=== PATIENT | female | born 1945 | race Caucasian/White ===

== ENCOUNTER 2021-03-13 16:05 | Inpatient (IN) | payer OTHER ==
[~2021-03-13] VITALS: Ht 170.2 cm; Wt 164.3 kg
[~2021-03-13 16:05] MED LIST: CIPRO500 MG PO; CLONAZEPAM0.5 MG PO; FERROUS SULFAT325 MG PO; FUROSEMIDE10 MG/1 ML BU; HYDROCHLOROTHIA25 MG PO; LASIX40 MG PO; LEVAQUIN500 MG PO; LEXAPRO10 MG PO; LYRICA75 MG PO; MELOXICAM15 MG PO; MELOXICAN; METOPROLOL SUCC25 MG PO; NORCO 10MG-325MG1 EA PO; OXYBUTYNIN CHLOR5 MG PO; PANTOPRAZOLE SO40 MG PO; POTASSIUM CHLO20 ME1 PO; SENNA-S TABLET1 EA PO; TRAZADONE; TRAZODONE HCL50 MG PO; ULTRAM50 MG PO; VITAMIN B12 PO; VITAMIN D31000 UNIT PO; WALKER; XARELTO20 MG PO; Z.0.CYCLOBENZAPRINE1; Z.0.HYDROCHLOROTHIA2 PO; Z.0.LISINOPRIL20 MG PO; Z.0.LOPRESSOR50 MG PO; Z.0.OXYBUTYNIN CHLOR PO
[2021-03-13 18:09] LABS: BASOPHILS # (AUTO) 0.1 (0.0-0.1); BASOPHILS % 0.6 % (0.0-1.0); EOSINOPHILS # (AUTO) 0.2 (0.0-0.4); HEMATOCRIT 38.4 % (34.2-44.1); HEMOGLOBIN 12.2 g/dL (12.0-16.0); LYMPHOCYTES # (AUTO) 2.1 (1.0-3.2); LYMPHOCYTES % 21.7 % (18.0-39.1); MEAN CORPUSCULAR HEMOGLOBIN 29.1 pg (28-32); MEAN CORPUSCULAR HGB CONC 31.8 g/dL (31-35); MEAN CORPUSCULAR VOLUME 91.6 fL (81-99); MONOCYTES % 10.9 % (4.4-11.3); NEUTROPHILS # (AUTO) 6.2 (2.1-6.9); NEUTROPHILS % 64.4 % (38.7-80.0); PLATELET COUNT 199 x10e3/uL (140-360); RED BLOOD COUNT 4.19 x10e6/uL (3.6-5.1); RED CELL DISTRIBUTION WIDTH 14.5 % (11.7-14.4)
[2021-03-13 18:18] LABS: ALBUMIN 3.5 g/dL (3.5-5.0); ALBUMIN/GLOBULIN RATIO 0.9 (0.8-2.0); ALKALINE PHOSPHATASE 68 IU/L (40-150); ANION GAP 14.9 mmol/L (8-16); BLOOD UREA NITROGEN 36 mg/dL (7-26); BUN/CREATININE RATIO 35 (6-25); CALCIUM 9.6 mg/dL (8.4-10.2); CARBON DIOXIDE 24 mmol/L (22-29); CHLORIDE 105 mmol/L (98-107); CREATININE, SERUM 1.02 mg/dL (0.57-1.11); EST GLOMERULAR FILTRATION RATE 53 ML/MIN (60-); GLUCOSE 97 mg/dL (74-118); POTASSIUM 3.9 mmol/L (3.5-5.1); SODIUM 140 mmol/L (136-145)
[2021-03-13 18:19] LABS: ALANINE AMINOTRANSFERASE < 6 IU/L (0-55)
[2021-03-13] MEDS ORDERED: VANCOMYCIN 1GM/NS 250 ML 250 ML IV STA (20:23)
[2021-03-13] MEDS ORDERED: CEFEPIME 1 GM in SODIUM CHLORIDE 0.9% 50ML 50 ML IV ONE (20:30)
[2021-03-13] MEDS ORDERED: FUROSEMIDE INJ 10 MG/ML 4 ML VIAL IV ONE (20:30)
[2021-03-13] MEDS ORDERED: Vancomycin IV 1.5 GM in SODIUM CHLORIDE 0.9% 250ML 250 ML IV ONE (21:45)
[2021-03-13] MEDS ORDERED: VANCOMYCIN 1GM/NS 250 ML 500 ML ONE ×2 (22:04→22:05)
[2021-03-13] MEDS ORDERED: SODIUM CHLORIDE 0.9% 250ML 250 ML ONE (22:04)
[2021-03-13 23:08] VITALS: BP 131/92
[2021-03-14] VITALS (7 sets, daily range): BP systolic 99–131; BP diastolic 67–92
[2021-03-14] MEDS ORDERED: ESCITALOPRAM OXALATE 10 MG TAB PO PRN (00:30)
[2021-03-14] MEDS ORDERED: ONDANSETRON HCL INJ 2MG/ML 2ML 2 MG/ML VIAL IV PRN (00:30)
[2021-03-14] MEDS ORDERED: HYDRALAZINE HCL 25 MG TAB PO PRN (00:30)
[2021-03-14] MEDS ORDERED: CEFAZOLIN SOD 1 GM/NS 50ML 50 ML IV STA (00:31)
[2021-03-14] MEDS ORDERED: VITAMIN D310 MCG PO (00:35)
[2021-03-14] MEDS ORDERED: NIFEDIPINE ER30 M1 PO (00:35)
[2021-03-14] MEDS ORDERED: POTASSIUM CHLO10 ME1 PO (00:37)
[2021-03-14] MEDS ORDERED: METOPROLOL TART50 MG PO (00:38)
[2021-03-14] MEDS ORDERED: VITAMIN E400 UNI1 PO (00:40)
[2021-03-14] MEDS ORDERED: TYLENOL325 MG PO (00:42)
[2021-03-14] MEDS ORDERED: SODIUM CHLORIDE 0.9% 250ML 250 ML ONE (01:23)
[2021-03-14] MEDS ORDERED: B12 ACTIVE1000 MCG PO (03:19)
[2021-03-14 05:35] LABS: BASOPHILS # (AUTO) 0.1 (0.0-0.1); BASOPHILS % 0.7 % (0.0-1.0); EOSINOPHILS # (AUTO) 0.3 (0.0-0.4); EOSINOPHILS % 3.5 % (0.0-6.0); HEMATOCRIT 36.1 % (34.2-44.1); HEMOGLOBIN 11.6 g/dL (12.0-16.0); LYMPHOCYTES # (AUTO) 1.6 (1.0-3.2); LYMPHOCYTES % 21.9 % (18.0-39.1); MEAN CORPUSCULAR HGB CONC 32.1 g/dL (31-35); MEAN CORPUSCULAR VOLUME 90.3 fL (81-99); MONOCYTES # (AUTO) 0.9 (0.2-0.8); MONOCYTES % 12.2 % (4.4-11.3); NEUTROPHILS # (AUTO) 4.4 (2.1-6.9); NEUTROPHILS % 61.4 % (38.7-80.0); PLATELET COUNT 186 x10e3/uL (140-360); RED CELL DISTRIBUTION WIDTH 14.1 % (11.7-14.4)
[2021-03-14] MEDS: ACETAMINOPHEN 325 MG TAB PO PRN ×2 (05:40→12:06)
[2021-03-14] MEDS: CEFAZOLIN SOD 1 GM/NS 50ML 50 ML IV SCH ×3 (05:48→17:05)
[2021-03-14 05:59] LABS: ALBUMIN/GLOBULIN RATIO 0.9 (0.8-2.0); ALKALINE PHOSPHATASE 61 IU/L (40-150); ANION GAP 12.8 mmol/L (8-16); BLOOD UREA NITROGEN 31 mg/dL (7-26); BUN/CREATININE RATIO 36 (6-25); CARBON DIOXIDE 25 mmol/L (22-29); CHLORIDE 107 mmol/L (98-107); CREATININE, SERUM 0.87 mg/dL (0.57-1.11); EST GLOMERULAR FILTRATION RATE > 60 ML/MIN (60-); GLUCOSE 96 mg/dL (74-118); POTASSIUM 3.8 mmol/L (3.5-5.1); SODIUM 141 mmol/L (136-145)
[2021-03-14] MEDS ORDERED: FUROSEMIDE INJ 10 MG/ML 4 ML VIAL IV SCH (06:00)
[2021-03-14 06:05] LABS: ALANINE AMINOTRANSFERASE < 6 IU/L (0-55)
[2021-03-14] MEDS: TRAMADOL HCL 50 MG TAB PO PRN ×2 (07:12→15:21)
[2021-03-14] MEDS ORDERED: OXYBUTYNIN CHLORIDE 5 MG TAB PO SCH (09:00)
[2021-03-14] MEDS ORDERED: METOPROLOL SUCCINATE 25 MG TAB XL PO SCH (09:00)
[2021-03-14] MEDS ORDERED: RIVAROXABAN 20 MG TABLET PO SCH (09:00)
[2021-03-14] MEDS: POTASSIUM CHLORIDE 20 MEQ TAB CR PO SCH (12:03)
[2021-03-14] MEDS: OXYBUTYNIN CHLORIDE 5 MG TAB PO SCH ×2 (12:03→20:30)
[2021-03-14] MEDS: METOPROLOL TARTRATE 50 MG TAB PO SCH ×2 (12:04→20:31)
[2021-03-14] MEDS: NIFEDIPINE CR 30 MG TAB PO SCH (12:05)
[2021-03-14] MEDS: LISINOPRIL 20 MG TAB PO SCH (12:08)
[2021-03-14] MEDS: FUROSEMIDE INJ 10 MG/ML 4 ML VIAL IV SCH (12:11)
[2021-03-14] MEDS: CHOLESTYRAMINE 4 GM PACKET PO PRN (15:20)
[2021-03-14] MEDS: RIVAROXABAN 20 MG TABLET PO SCH (20:30)
[2021-03-14] MEDS: FERROUS SULFATE 325 MG TAB PO SCH (20:30)
[2021-03-15] VITALS (8 sets, daily range): BP systolic 93–136; BP diastolic 58–75
[2021-03-15] MEDS: CEFAZOLIN SOD 1 GM/NS 50ML 50 ML IV SCH ×5 (01:54→23:45)
[2021-03-15] MEDS: FUROSEMIDE INJ 10 MG/ML 4 ML VIAL IV SCH (10:24)
[2021-03-15] MEDS: TRAMADOL HCL 50 MG TAB PO PRN ×2 (10:24→22:00)
[2021-03-15] MEDS: POTASSIUM CHLORIDE 20 MEQ TAB CR PO SCH (10:25)
[2021-03-15] MEDS: OXYBUTYNIN CHLORIDE 5 MG TAB PO SCH ×2 (10:25→21:29)
[2021-03-15] MEDS: NIFEDIPINE CR 30 MG TAB PO SCH (10:26)
[2021-03-15] MEDS: METOPROLOL TARTRATE 50 MG TAB PO SCH ×2 (10:26→21:29)
[2021-03-15] MEDS: LISINOPRIL 20 MG TAB PO SCH (10:26)
[2021-03-15] MEDS: BALSAM PERU/CASTOR OIL 60 GM OINT...G. TP SCH (17:20)
[2021-03-15] MEDS: RIVAROXABAN 20 MG TABLET PO SCH (21:29)
[2021-03-15] MEDS: FERROUS SULFATE 325 MG TAB PO SCH (21:29)
[2021-03-16] VITALS (8 sets, daily range): BP systolic 120–135; BP diastolic 75–89
[2021-03-16 04:52] LABS: BASOPHILS # (AUTO) 0.1 (0.0-0.1); BASOPHILS % 0.5 % (0.0-1.0); EOSINOPHILS # (AUTO) 0.1 (0.0-0.4); EOSINOPHILS % 0.8 % (0.0-6.0); HEMATOCRIT 37.9 % (34.2-44.1); HEMOGLOBIN 12.5 g/dL (12.0-16.0); LYMPHOCYTES % 21.1 % (18.0-39.1); MEAN CORPUSCULAR HEMOGLOBIN 29.3 pg (28-32); MEAN CORPUSCULAR VOLUME 88.8 fL (81-99); MONOCYTES # (AUTO) 1.1 (0.2-0.8); MONOCYTES % 11.6 % (4.4-11.3); NEUTROPHILS # (AUTO) 6.3 (2.1-6.9); NEUTROPHILS % 65.6 % (38.7-80.0); PLATELET COUNT 195 x10e3/uL (140-360); RED BLOOD COUNT 4.27 x10e6/uL (3.6-5.1)
[2021-03-16 05:11] LABS: ANION GAP 15.2 mmol/L (8-16); BLOOD UREA NITROGEN 20 mg/dL (7-26); BUN/CREATININE RATIO 22 (6-25); CALCIUM 8.9 mg/dL (8.4-10.2); CARBON DIOXIDE 26 mmol/L (22-29); CHLORIDE 100 mmol/L (98-107); EST GLOMERULAR FILTRATION RATE > 60 ML/MIN (60-); GLUCOSE 113 mg/dL (74-118); POTASSIUM 4.2 mmol/L (3.5-5.1); SODIUM 137 mmol/L (136-145)
[2021-03-16] MEDS: CEFAZOLIN SOD 1 GM/NS 50ML 50 ML IV SCH ×4 (05:34→23:07)
[2021-03-16] MEDS: FUROSEMIDE INJ 10 MG/ML 4 ML VIAL IV SCH (08:37)
[2021-03-16] MEDS: OXYBUTYNIN CHLORIDE 5 MG TAB PO SCH ×2 (08:37→20:22)
[2021-03-16] MEDS: POTASSIUM CHLORIDE 20 MEQ TAB CR PO SCH (08:37)
[2021-03-16] MEDS: NIFEDIPINE CR 30 MG TAB PO SCH (08:38)
[2021-03-16] MEDS: LISINOPRIL 20 MG TAB PO SCH (08:38)
[2021-03-16] MEDS: METOPROLOL TARTRATE 50 MG TAB PO SCH ×2 (08:38→20:22)
[2021-03-16] MEDS: BALSAM PERU/CASTOR OIL 60 GM OINT...G. TP SCH (08:39)
[2021-03-16] MEDS: TRAMADOL HCL 50 MG TAB PO PRN (10:39)
[2021-03-16] MEDS: FERROUS SULFATE 325 MG TAB PO SCH (20:22)
[2021-03-16] MEDS: RIVAROXABAN 20 MG TABLET PO SCH (20:22)
[2021-03-17] VITALS (9 sets, daily range): BP systolic 96–124; BP diastolic 60–80
[2021-03-17] MEDS: CEFAZOLIN SOD 1 GM/NS 50ML 50 ML IV SCH ×4 (05:15→23:23)
[2021-03-17] MEDS: TRAMADOL HCL 50 MG TAB PO PRN ×2 (05:53→13:30)
[2021-03-17] MEDS: LISINOPRIL 20 MG TAB PO SCH (09:00)
[2021-03-17] MEDS: FUROSEMIDE INJ 10 MG/ML 4 ML VIAL IV SCH (09:00)
[2021-03-17] MEDS: BALSAM PERU/CASTOR OIL 60 GM OINT...G. TP SCH (09:00)
[2021-03-17] MEDS: METOPROLOL TARTRATE 50 MG TAB PO SCH ×2 (09:00→20:27)
[2021-03-17] MEDS: NIFEDIPINE CR 30 MG TAB PO SCH (09:00)
[2021-03-17] MEDS: OXYBUTYNIN CHLORIDE 5 MG TAB PO SCH ×2 (09:00→20:27)
[2021-03-17] MEDS: POTASSIUM CHLORIDE 20 MEQ TAB CR PO SCH (09:00)
[2021-03-17] MEDS: FERROUS SULFATE 325 MG TAB PO SCH (20:27)
[2021-03-17] MEDS: RIVAROXABAN 20 MG TABLET PO SCH (20:27)
[2021-03-18] VITALS (7 sets, daily range): BP systolic 101–134; BP diastolic 64–81
[2021-03-18] MEDS: CEFAZOLIN SOD 1 GM/NS 50ML 50 ML IV SCH ×3 (05:20→17:23)
[2021-03-18] MEDS: BALSAM PERU/CASTOR OIL 60 GM OINT...G. TP SCH (09:00)
[2021-03-18] MEDS: NIFEDIPINE CR 30 MG TAB PO SCH (09:00)
[2021-03-18] MEDS: FUROSEMIDE INJ 10 MG/ML 4 ML VIAL IV SCH (09:00)
[2021-03-18] MEDS: METOPROLOL TARTRATE 50 MG TAB PO SCH ×2 (09:00→21:37)
[2021-03-18] MEDS: LISINOPRIL 20 MG TAB PO SCH (09:00)
[2021-03-18] MEDS: POTASSIUM CHLORIDE 20 MEQ TAB CR PO SCH (09:00)
[2021-03-18] MEDS: OXYBUTYNIN CHLORIDE 5 MG TAB PO SCH ×2 (09:00→21:37)
[2021-03-18] MEDS: TRAMADOL HCL 50 MG TAB PO PRN ×2 (10:17→18:35)
[2021-03-18] MEDS: CHOLESTYRAMINE 4 GM PACKET PO PRN ×2 (14:31→22:33)
[2021-03-18] MEDS: RIVAROXABAN 20 MG TABLET PO SCH (21:37)
[2021-03-18] MEDS: FERROUS SULFATE 325 MG TAB PO SCH (21:37)
[2021-03-19] VITALS (9 sets, daily range): BP systolic 107–122; BP diastolic 64–82
[2021-03-19 05:10] LABS: ANION GAP 13.9 mmol/L (8-16); CALCIUM 9.1 mg/dL (8.4-10.2); CREATININE, SERUM 1.04 mg/dL (0.57-1.11); POTASSIUM 3.9 mmol/L (3.5-5.1)
[2021-03-19] MEDS: CEFAZOLIN SOD 1 GM/NS 50ML 50 ML IV SCH ×4 (06:13→20:00)
[2021-03-19] MEDS: POTASSIUM CHLORIDE 20 MEQ TAB CR PO SCH (08:42)
[2021-03-19] MEDS: LISINOPRIL 20 MG TAB PO SCH (08:43)
[2021-03-19] MEDS: NIFEDIPINE CR 30 MG TAB PO SCH (08:46)
[2021-03-19] MEDS: FUROSEMIDE INJ 10 MG/ML 4 ML VIAL IV SCH (08:50)
[2021-03-19] MEDS: ACETAMINOPHEN 325 MG TAB PO PRN ×2 (09:12→10:05)
[2021-03-19] MEDS: OXYBUTYNIN CHLORIDE 5 MG TAB PO SCH ×2 (10:03→21:05)
[2021-03-19] MEDS: METOPROLOL TARTRATE 50 MG TAB PO SCH ×2 (10:04→20:46)
[2021-03-19] MEDS: FERROUS SULFATE 325 MG TAB PO SCH (20:46)
[2021-03-19] MEDS: RIVAROXABAN 20 MG TABLET PO SCH (21:05)
[2021-03-20] VITALS (8 sets, daily range): BP systolic 109–117; BP diastolic 70–84
[2021-03-20] MEDS: TRAMADOL HCL 50 MG TAB PO PRN ×3 (00:14→15:39)
[2021-03-20] MEDS: CEFAZOLIN SOD 1 GM/NS 50ML 50 ML IV SCH ×4 (00:14→17:21)
[2021-03-20] MEDS: OXYBUTYNIN CHLORIDE 5 MG TAB PO SCH ×2 (08:46→21:12)
[2021-03-20] MEDS: FUROSEMIDE INJ 10 MG/ML 4 ML VIAL IV SCH (08:46)
[2021-03-20] MEDS: METOPROLOL TARTRATE 50 MG TAB PO SCH ×2 (08:47→21:13)
[2021-03-20] MEDS: POTASSIUM CHLORIDE 20 MEQ TAB CR PO SCH (08:47)
[2021-03-20] MEDS: LISINOPRIL 20 MG TAB PO SCH (08:48)
[2021-03-20] MEDS: NIFEDIPINE CR 30 MG TAB PO SCH (08:48)
[2021-03-20] MEDS: FERROUS SULFATE 325 MG TAB PO SCH (21:12)
[2021-03-20] MEDS: RIVAROXABAN 20 MG TABLET PO SCH (21:13)
[2021-03-21] VITALS (7 sets, daily range): BP systolic 108–130; BP diastolic 62–82
[2021-03-21] MEDS: CEFAZOLIN SOD 1 GM/NS 50ML 50 ML IV SCH ×5 (00:01→23:42)
[2021-03-21] MEDS: NIFEDIPINE CR 30 MG TAB PO SCH (07:59)
[2021-03-21] MEDS: FUROSEMIDE INJ 10 MG/ML 4 ML VIAL IV SCH (07:59)
[2021-03-21] MEDS: LISINOPRIL 20 MG TAB PO SCH (08:00)
[2021-03-21] MEDS: OXYBUTYNIN CHLORIDE 5 MG TAB PO SCH ×2 (08:00→20:29)
[2021-03-21] MEDS: METOPROLOL TARTRATE 50 MG TAB PO SCH ×2 (08:00→20:29)
[2021-03-21] MEDS: POTASSIUM CHLORIDE 20 MEQ TAB CR PO SCH (08:30)
[2021-03-21] MEDS: CHOLESTYRAMINE 4 GM PACKET PO PRN (13:57)
[2021-03-21] MEDS: ACETAMINOPHEN 325 MG TAB PO PRN ×2 (14:17→21:50)
[2021-03-21] MEDS: RIVAROXABAN 20 MG TABLET PO SCH (20:29)
[2021-03-21] MEDS: FERROUS SULFATE 325 MG TAB PO SCH (20:29)
[2021-03-22] VITALS: BP 97/64
[2021-03-22 04:00] VITALS: BP 103/69
[2021-03-22] MEDS: CEFAZOLIN SOD 1 GM/NS 50ML 50 ML IV SCH (05:20)
[2021-03-22 07:57] VITALS: BP 113/80
[2021-03-22 09:00] VITALS: BP 113/80
[2021-03-22] MEDS: FUROSEMIDE INJ 10 MG/ML 4 ML VIAL IV SCH (09:00)
[2021-03-22] MEDS: OXYBUTYNIN CHLORIDE 5 MG TAB PO SCH (09:00)
[2021-03-22] MEDS: POTASSIUM CHLORIDE 20 MEQ TAB CR PO SCH (09:00)
[2021-03-22] MEDS: LISINOPRIL 20 MG TAB PO SCH (09:00)
[2021-03-22] MEDS: NIFEDIPINE CR 30 MG TAB PO SCH (09:00)
[2021-03-22] MEDS: METOPROLOL TARTRATE 50 MG TAB PO SCH (09:00)
[2021-03-22] MEDS ORDERED: KEFLEX125 MG/5 M PO (09:40)
[2021-03-22] MEDS ORDERED: ONDANSETRON ODT4 MG PO (09:41)
[2021-03-22] MEDS ORDERED: CYCLOBENZAPRINE5 MG PO (09:41)
[2021-03-22] MEDS ORDERED: DIAZEPAM 5 MG TAB PO ONE (10:00)
== END 2021-03-22 10:34 | DRG 603 ==
LOC: ER 18:43 → ERHOLD 20:47 → MED/SURG2 23:49 → OBSVTOIN 03-15 09:59
PROVIDERS: ADMIT Internal Medicine; ATTEND Internal Medicine
DX: L03.115 Cellulitis of right lower limb (principal); Z68.43 Body mass index [BMI] 50.0-59.9, adult; I89.0 Lymphedema, not elsewhere classified; I87.8 Other specified disorders of veins; I48.91 Unspecified atrial fibrillation; L89.312 Pressure ulcer of right buttock, stage 2; Z20.822 Contact with and (suspected) exposure to COVID-19; M19.90 Unspecified osteoarthritis, unspecified site; N32.81 Overactive bladder; Z79.01 Long term (current) use of anticoagulants; Z74.09 Other reduced mobility; L89.152 Pressure ulcer of sacral region, stage 2; L89.212 Pressure ulcer of right hip, stage 2; L89.892 Pressure ulcer of other site, stage 2; L89.322 Pressure ulcer of left buttock, stage 2
CPT/HCPCS: 36415; 51700; 71045; 80048; 80053; 82550; 82553; 82948; 83605; 83880; 84484; 85025; 87040; 93005; 97139; 99251; 99284; G0378; J0690; J0692; J1940; J3370; J7050; U0002